=== PATIENT | female | born 2005 | race Caucasian/White ===

== ENCOUNTER 2023-08-03 08:04 | Day surgery (SDC) | payer BC ==
[2023-07-28 15:14] VITALS: BMI 26.5
--- NOTE | 2023-08-02 13:58 | HP ---
HISTORY AND PHYSICAL DATE OF ANTICIPATED SURGERY: 08/03/2023. HISTORY OF PRESENT ILLNESS: Jayde Sanchez is a 18-year-old patient seen with progressive right knee pain. We discussed options for treatment. She elected to proceed with right knee arthroscopy. Consent was obtained. PAST MEDICAL HISTORY: Noncontributory. PAST SURGICAL HISTORY: Right knee ACL reconstruction. DAILY MEDICATIONS: 1. Tylenol. 2. control. ALLERGIES: Azithromycin, Motrin. SOCIAL HISTORY: The patient denies tobacco use. PHYSICAL EVALUATION OF THE RIGHT KNEE: She has well-healed previous arthroscopic portal sites. Range of motion 0 to 135 degrees. Mild effusion. Tenderness along the medial and lateral joint lines. Positive medial Rosa's. Positive lateral Rosa's. Ligaments are stable. Distal neurovascular exam is intact. RADIOGRAPHS: Radiographs of the right knee revealed stable appearing Endobuttons consistent with previous anterior cruciate ligament reconstruction. Right knee MRI revealed an intact anterior cruciate ligament/graft, lateral meniscal tear, and some chondral defect involving the lateral femoral condyle. IMPRESSION: 1. Internal derangement of right knee with lateral meniscal tear. 2. History of right knee ACL reconstruction. PLAN: Right knee arthroscopy with partial lateral meniscectomy and debridement. MMODL / IJN: [id number] /
[~2023-08-03 08:04] MED LIST: DEXAMETHASONE SOD PHOSPHATE 4 MG/ML 1 ML VIAL IV ONE; HYDROmorphone 0.5 MG/0.5 ML SYRINGE IVP PRN; LACTATED RINGERS 1,000 ML IV SCH; LIDOCAINE 1% (10MG/ML) FOR IV START INTRADERMA PRN; ONDANSETRON 4 MG/2 ML VIAL IVP ONE; SCOPOLAMINE 1 MG/72 HR PATCH TRANSDERM ONE; droPERidol 5 MG/2 ML VIAL IVP ONE
[2023-08-03] MEDS ORDERED: LACTATED RINGERS 1,000 ML IV ONE ×2 (08:17)
[2023-08-03 08:25] VITALS: TEMP 97
[2023-08-03] MEDS ORDERED: MIDAZOLAM 2 MG/2 ML VIAL IVP ONE (08:44)
[2023-08-03 08:51] LABS: Basophils % (A) 1 %; Eosinophils # (A) 0.1 k/uL (0-0.7); Eosinophils % (A) 2 %; HCT 43.1 % (34.0-46.0); HGB 14.9 gm/dL (11.4-16.0); Lymphocytes # (A) 2.8 k/uL (1.0-4.8); Lymphocytes % (A) 41 %; MCH 29.5 pg (25.0-35.0); MCHC 34.5 g/dL (31.0-37.0); MCV 85.4 fL (80.0-100.0); Mean Platelet Volume 7.5; Monocytes # (A) 0.3 k/uL (0-1.0); Monocytes % (A) 5 %; Neutrophils # (A) 3.3 k/uL (1.3-7.7); Neutrophils % (A) 50 %; Platelet Count 255 k/uL (150-450); RBC 5.05 m/uL (3.80-5.40); WBC 6.7 k/uL (4.0-11.0)
[2023-08-03] MEDS ORDERED: fentaNYL (PF) 50 MCG/ML 2 ML AMP ONE (09:24)
[2023-08-03] MEDS ORDERED: MIDAZOLAM 2 MG/2 ML VIAL ONE (09:24)
[2023-08-03] MEDS ORDERED: PROPOFOL 10 MG/ML 20 ML VIAL IV ONE (09:24)
[2023-08-03] MEDS ORDERED: LIDOCAINE 1% INJ 10MG/ML (20 ML MDV) ONE (09:24)
[2023-08-03] MEDS ORDERED: SODIUM CHLORIDE 0.9% 100 ML with ceFAZolin 2,000 MG IV ONE ×2 (09:29)
[2023-08-03] MEDS ORDERED: BUPIVACAINE (PF) 0.25% 30 ML VIAL SQ ONE (10:08)
--- NOTE | 2023-08-03 10:24 | P.OP ---
Date of Procedure: 08/03/23 Preoperative Diagnosis: Internal derangement right knee Postoperative Diagnosis: 1. Tear medial and lateral meniscus right knee 2. Partial ACL graft tear right knee 3. Reactive synovitis medial, lateral and suprapatellar compartments right knee Procedure(s) Performed: 1. Arthroscopic partial medial and lateral meniscectomy right knee 2. Arthroscopic debridement partial ACL graft tear right knee 3. Arthroscopic partial synovectomy medial, lateral and suprapatellar compartments right knee Anesthesia: BEBETOA, local Surgeon: Jacob Zamora Estimated Blood Loss (ml): 7 Pathology: none sent Condition: stable Disposition: PACU Indications for Procedure: 18-year-old patient was seen with progressive right knee pain. After treatment options were discussed with her, she elected to proceed with arthroscopy. Operative Findings: see description of procedure Description of Procedure: Patient was taken to the operative suite. Patient underwent a general anesthetic by the department of anesthesia. Patient was given preoperative antibiotics. The right lower extremity was placed in a well-padded arthroscopic leg kilgore. The right leg was prepped and draped in the normal sterile orthopedic fashion. A lateral parapatellar and suprapatellar incision was made. Trochars were inserted. Arthroscopy was initiated. Suprapatellar pouch reveals some reactive synovitis in the suprapatellar compartment. The patellofemoral joint appeared to articulate congruently. There was some early grade 1 chondromalacia of the lateral femoral sulcus with no significant tears present.. The scope was guided into the medial gutter. Loose bodies or plica were identified. The scope was then guided into the medial compartment. A medial parapatellar incision was made. Trocar inserted followed by probe. There was a radial tear involving the posterior horn of the medial meniscus. There was no significant chondromalacia present on the medial compartment. There was some thick reactive synovitis anteriorly. I performed a partial medial meniscectomy getting down to stable meniscal tissue. I performed a partial synovectomy decompressing the reactive synovitis. The residual meniscus was found to be stable. There was good decompression of the synovitis. Scope and probe were then guided into the intercondylar notch. There was some partial tearing along the medial and lateral aspects of the ACL graft. I introduced a motorized shaver and debrided those torn fibers. The residual graft was stable. Intraoperatively the knee was stable to Dao and drawer's testing.. The scope and probe were then guided into lateral compartment. There was a radial tear involving the mid body and posterior horns of lateral meniscus. There were grade 1 chondromalacia changes of the lateral compartment with no significant t ears present. There was some reactive synovitis anteriorly. I performed a partial lateral meniscectomy getting down to stable meniscal tissue. I performed a partial synovectomy decompressing the reactive synovitis. The residual meniscus was probed and was found to be stable. There was good decompression of the synovitis. The scope was in guided back into the suprapatellar compartment. I introduced a motorized shaver into the suprapatellar compartment. I performed a partial synovectomy. The shaver was removed. There was good decompression of the synovitis. I now took one more look around the entire knee, no residual debris. Instruments were now removed from the joint. The joint was infiltrated with .25% Marcaine. Steri-Strips were applied to the portal sites. Sterile dressings were applied. The patient was placed into a SELINA hose. No tourniquet was utilized. The patient was awakened, transferred to a bed and taken to recovery stable satisfactory condition.
[2023-08-03 11:01] VITALS: RESP 16
[2023-08-03 12:48] LABS: Glucose,Whole Blood 99 mg/dL (70-110)
[2023-08-03 12:49] VITALS: BP 125/71; PULSE 57
== END 2023-08-03 13:40 | disposition home or self-care (01) ==
LOC: OR 08:04
PROVIDERS: ATTEND Orthopaedic Surgery
DX: S83.281A Other tear of lateral meniscus, current injury, right knee, initial encounter (principal); S83.241A Other tear of medial meniscus, current injury, right knee, initial encounter; M65.861 Other synovitis and tenosynovitis, right lower leg; X58.XXXA Exposure to other specified factors, initial encounter; Z79.899 Other long term (current) drug therapy; Z88.1 Allergy status to other antibiotic agents
CPT/HCPCS: 81025; 85025; 29880; J2250; J1100; J2405; J0690; J2001; J3010; J2704; J0665